=== PATIENT | female | born 1940 | race Caucasian/White ===

== ENCOUNTER → 2016-06-16 | Outpatient (CLI) | payer MEDICARE ==
[~2016-06-16] MED LIST: ACET325T38 PO; ASCO500C6 PO; CALC-676 PO; [UNRECOGNIZED DRUG - CODE] PO
[2016-06-16 09:37] LABS: BASOPHILS % (AUTO) 1 % (0-2); EOSINOPHILS # (AUTO) 0.3 10^3uL; EOSINOPHILS % (AUTO) 4 % (0-4); LYMPHOCYTES # (AUTO) 3.2 X10^3; MEAN CORPUSCULAR HEMOGLOBIN 30.6 PG (26.0-34.0); MEAN CORPUSCULAR HGB CONC 32.8 g/dL (31.0-37.0); MEAN CORPUSCULAR VOLUME 93 FL (80-100); MONOCYTES # (AUTO) 0.7 X10^3; MONOCYTES % (AUTO) 9 % (3-11); NEUTROPHILS # (AUTO) 4.2 X10^3; NEUTROPHILS % (AUTO) 50 % (51-67); PLATELET COUNT 177 10^3uL (150-450); WHITE BLOOD COUNT 8.48 10^3uL (4.0-11.0)
[2016-06-16 10:02] LABS: ALBUMIN 4.3 g/dL (3.4-5.0); ANION GAP 16.6 MEQ/L (3-15); CALCULATED IONIZED CALCIUM 4.2 mg/dL (3.8-4.6); TOTAL PROTEIN 7.4 g/dL (6.4-8.5)
== END ==
LOC: LAB 09:21
PROVIDERS: ATTEND Internal Medicine
DX: Z00.00 Encounter for general adult medical examination without abnormal findings (principal); R74.8 Abnormal levels of other serum enzymes; E78.4 Other hyperlipidemia; R73.09 Other abnormal glucose; M85.80 Other specified disorders of bone density and structure, unspecified site
CPT/HCPCS: 36415; 80053; 80061; 82306; 83036; 84443; 85025

== ENCOUNTER → 2016-06-26 | Outpatient (CLI) | payer MEDICARE ==
--- NOTE | 2016-06-26 17:13 | Diagnostic Imaging Report ---
EXAMINATION: DEXA study. INDICATION: Postmenopausal. CORRELATION STUDY: 05/04/2014. FINDINGS: Bone mineral density of the lumbar spine, L2-L4 is 1.288 g/cm2 with a T-score of 0.7. This is in the NORMAL range. Previously bone mineral density of 1.182 g/cm2. Bone mineral density of the left femur is 0.808 g/cm2 with a T-score of -1.6. This is in the OSTEOPENIA range. Previously bone mineral density of 0.760 g/cm2. Bone mineral density of the right femur is 0.793 g/cm2 with a T-score of -1.7. This is in the OSTEOPENIA range. Previously bone mineral density of 0.760 g/cm2. Total mean density of the hips is 0.800 g/cm2 with a T-score of -1.7. IMPRESSION: This scan is considered OSTEOPENIC according to the World Health Organization guidelines. Bone mineral density however is slightly improved since the prior study. Dictated by: Dictated on workstation # [id number]
== END ==
LOC: RAD 13:22
PROVIDERS: ATTEND Internal Medicine
DX: Z78.0 Asymptomatic menopausal state (principal); M85.89 Other specified disorders of bone density and structure, multiple sites
CPT/HCPCS: 77080